=== PATIENT | female | born 1975 | race Caucasian/White ===

== ENCOUNTER 2021-01-04 17:31 | Emergency (ER) | payer SELFPAY ==
[~2021-01-04] VITALS: Ht 167.6 cm; Wt 79.0 kg
[2021-01-04 17:39] VITALS: BP 118/73
== END 2021-01-04 18:57 | disposition home or self-care (01) ==
LOC: ER 17:31
DX: R10.13 Epigastric pain (principal)
CPT/HCPCS: 99283